=== PATIENT | female | born 1940 | race Caucasian/White ===

== ENCOUNTER 2016-10-12 13:29 | Observation (INO) | payer MEDICARE, OTHER ==
--- NOTE | ~2016-10-12 | HEMODYNAMI ---
PATIENT:MARIOLA PIERCE MEDICAL RECORD: [id number] : 40 LOCATION:[facility] D.2118 ADMISSION DATE: 10/12/16 Generatedon:10/13/201612:00 Patient name: MARIOLA PIERCE Patient #: [id number] SSN: : 1940 Date of study: 10/13/2016 Page: Of Hemodynamic Procedure Report Patient Data Patient Demographics Procedure consent was obtained First Name: MARIOLA Gender: Female Last Name: STAN : 1940 Patient #: [id number] Age: 75 year(s) Race: Unknown Additional ID: [id number] Contact details Address: [place] [address] State: [place] City: [place] Zip code: [address] Admission Admission Data Admission Date: 10/12/2016 Admission Time: 18:07 Room #: D.2118 Procedure Procedure Types Cath Procedure Diagnostic Procedure LHC LHC w/Coronaries PCI Procedure Coronary Stent Initial x2 Miscellaneous Procedures Moderate Sedation up to 15 minutes Procedure Description Procedure Date Procedure Date: 10/13/2016 Procedure Start Time: 11:38 Procedure End Time: 11:59 Procedure Staff Name Function Jose Conklin MD Performing Physician Rina Kruse RN Nurse Cliff Biggs RT Monitor Manish Farrell RT Scrub Procedure Data Cath Procedure Fluoroscopy Diagnostic fluoroscopy Total fluoroscopy Time: 5.1 time: 5.1 min min Diagnostic fluoroscopy Total fluoroscopy dose: 852 dose: 852 mGy mGy Contrast Material Contrast Material Type Amount (ml) Isovue 300 109 Entry Location Entry Primary Successful Side Size Upsize Upsize Entry Closure Nina ccessful Closure Location (Fr) 1 (Fr) 2 (Fr) Remarks Device Remarks Radial Right 6 Fr Mechanical artery Short Compression Estimated blood loss: 10 ml Diagnostic catheters Device Type Used For End Catheter Placement Terumo 5Fr Sparta 110cm Procedure catheter Procedure Complications No complications Procedure Medications Medication Administration Route Dosage Oxygen NC 2 l/min Heparin Flush Bag added to field 2 bags (1000units/500ml NS) Lidocaine 2% added to field 20 Radial Cocktail added to field 1 syringe (Verapomil 2mg/Nitro 400mcg/Heparin 1500units) Versed I.V. 1 mg Fentanyl I.V. 50 mcg Radial Cocktail I.A. 1 syringe (Verapomil 2mg/Nitro 400mcg/Heparin 1500units) Versed I.V. 1 mg Fentanyl I.V. 50 mcg Heparin Bolus I.V. 4000 units Fentanyl I.V. 50 mcg Hemodynamics Rest Heart Rate: 77 (bpm) Pressure Samples Time Site Value (mmHg) Purpose Heart Use Rate(bpm) 11:40 LV 123/11,13 Snapshot 71 11:40 AO 109/58(82) Pullback 75 11:40 LV 129/13,17 Pullback 75 11:41 AO 112/60(84) Snapshot 72 Gradients Valve Time Site 1 Site 2 Mean SEP/DFP Peak To Heart Use (mmHg) (sec/min) Peak Rate (mmHg) (bpm) Aortic 11:40 LV AO 10 18 20 75 129/13,17 109/58(82) Calculations Valve P-P Mean Valve Index Valve Source Name Gradient Area Flow (cm2) Aortic 20 10 20 10 Snapshots Pre Cath Intra NCS Post Cath Vital Signs Time Heart Resp SPO2 NIBP (mmHg) Rhythm Pain Sedation Rate (ipm) (%) Status Level (bpm) 11:12:18 78 17 99 162/72(112) NSR 0 (11) 10(A) , No pain 11:16:36 71 17 100 154/74(120) NSR 0 (11) 10(A) , No pain 11:20:56 71 23 99 155/71(106) NSR 0 (11) 10(A) , No pain 11:25:18 69 24 96 154/69(114) NSR 0 (11) 10(A) , No pain 11:29:38 69 21 98 155/74(104) NSR 0 (11) 10(A) , No pain 11:34:03 64 16 95 143/69(105) NSR 0 (11) 10(A) , No pain 11:38:25 61 17 97 132/69(96) NSR 0 (11) 10(A) , No pain 11:42:43 74 16 96 141/60(87) NSR 0 (11) 9(A) , No pain 11:47:01 74 16 92 119/57(89) NSR 0 (11) 9(A) , No pain 11:51:13 76 18 95 132/66(90) NSR 0 (11) 9(A) , No pain 11:54:03 73 19 96 120/61(86) NSR 0 (11) 9(A) , No pain 11:58:17 96 119/63(89) NSR 0 (11) 9(A) , No pain Medications Time Medication Route Dose Verified Delivered Reason Note s Effectiveness by by 11:13:32 Oxygen NC 2 l/min Jose Rina Per physician Katerin Kruse RN 11:13:40 Heparin Flush added 2 bags Jose Garcia used for Bag to Katerin Conklin MD procedure (1000units/500ml field NS) 11:13:47 Lidocaine 2% added 20ml Joserene Garcia used for to vial Katerin Conklin MD procedure field 11:13:53 Radial Cocktail added 1 Joserene Garcia used for (Verapomil to syringe Katerin Conklin MD procedure 2mg/Nitro field 400mcg/Heparin 1500units) 11:37:00 Versed I.V. 1 mg Jose Rina for sedation Katerin Kruse RN 11:37:15 Fentanyl I.V. 50 mcg Jose Rina for sedation Katerin Kruse RN 11:39:00 Versed I.V. 1 mg Jose Rina for sedation Katerin Kruse RN 11:39:15 Fentanyl I.V. 50 mcg Jose Rina for sedation Katerin Kruse RN 11:39:31 Radial Cocktail I.A. 1 Joserene Garcia for (Verapomil syringe Katerin Conklin MD vasodilation 2mg/Nitro 400mcg/Heparin 1500units) 11:41:06 Fentanyl I.V. 50 mcg Jose Rina for sedation Katerin Kruse RN 11:43:30 Heparin Bolus I.V. 4000 Jose Rina for dose units Katerin Kruse RN anticoagulation verified wt dr conklin Procedure Log Time Note 10:45:03 Manish Farrell RT(R) sent for patient. Start room use. 10:58:53 Time tracking: Regular hours 10:58:57 Plan of Care:Hemodynamics will remain stable., Cardiac rhythm will remain stable., Comfort level will be maintained., Respiratory function will remain adequate., Patient/ family verbilizes understanding of procedure., Procedure tolerated without complication., Recovers from procedure without complications.. 11:05:38 Patient received from PCU to CCL 2 Alert and oriented. Tansferred to table in Supine position. 11:05:39 Warm blankets applied, and shavon hugger turned on for patient comfort. 11:05:39 Correct patient and procedure confirmed by team. 11:05:41 Signed procedure consent form obtained from patient. 11:05:41 ECG and BP/O2 sat monitors applied to patient. 11:11:05 Vital chart was started 11:12:50 Baseline sample Acquired. 11:12:53 Rhythm: sinus rhythm 11:12:55 Full Disclosure recording started 11:13:32 Oxygen 2 l/min NC was administered by Rina Kruse RN; Per physician; 11:13:40 Heparin Flush Bag (1000units/500ml NS) 2 bags added to field was administered by Jose Conklin MD; used for procedure; 11:13:47 Lidocaine 2% 20ml vial added to field was administered by Jose Conklin MD; used for procedure; 11:13:53 Radial Cocktail (Verapomil 2mg/Nitro 400mcg/Heparin 1500units) 1 syringe added to field was administered by Joes Conklin MD; used for procedure; 11:18:31 H&P Date Dictated: 10/13/2016 Within 30 days and on chart.. 11:18:32 Pre-procedure instructions explained to patient. 11:18:32 Pre-op teaching completed and patient verbalized understanding. 11:18:33 Family in waiting room. 11:18:34 Patient NPO since Midnight. 11:18:36 Is the patient allergic to Iodine/contrast media? No. 11:18:37 Is patient on blood thinner?Yes 11:18:42 ACC The patient was administered the following blood thiners within the last 24 hours: ACCPlavix 11:18:44 Patient diabetic? No. 11:18:46 Patient not . Patient is over age 55. 11:18:50 Previous problem with sedation/anesthesia? No ? 11:18:55 Snore? Yes 11:18:56 Sleep apnea? No 11:18:57 Deviated septum? No 11:18:58 Opens mouth fully? Yes 11:18:59 Sticks out tongue? Yes 11:19:01 Airway obstruction? No ? 11:19:02 Dentures? No ? 11:19:05 Pre procedure: right dorsailis pedis pulse 1+ Palpable, but thready & weak; easily obliterated 11:19:08 Modified Jony's test Ulnar < 7 seconds 11:19:09 Patient pain scale 0/10 ?. 11:19:14 IV patent on arrival in left forearm with 0.9% NaCl at [facility]. 11:19:16 Lab results completed and on chart. 11:19:19 Right Radial & Right Groin area was prepped with chlora-prep and draped in sterile fashion 11:19:22 Alarms reviewed by R. N. 11:19:23 Sharps counted by scrub and verified by R.N. 11:19:28 Use device set Radial Dx 11:19:30 Tegaderm 4 x 4 opened to sterile field. 11:19:31 Acist Manifold opened to sterile field. 11:19:31 Acist Hand Control opened to sterile field. 11:19:32 Acist Syringe opened to sterile field. 11:19:33 Medline Cath Pack opened to sterile field. 11:19:33 Bag Decanter opened to sterile field. 11:19:33 Terumo 6Fr Slender Glidesheath opened to sterile field. 11:19:34 St Adis 260cm J .035 wire opened to sterile field. 11:19:34 MBrace Wrist Support opened to sterile field. 11:36:46 --------ALL STOP TIME OUT------ 11:36:47 Final Timeout: patient, procedure, and site verified with staff and physician. All members of the team are in agreement. 11:37:00 Versed 1 mg I.V. was administered by Rina Kruse RN; for sedation; 11:37:02 Right Radial & Right Groin site verified by team. 11:37:07 Physical assessment completed. ASA score P 2 - A patient with mild systemic disease as per Jose Conklin MD. 11:37:10 Sedation plan: IV Moderate Sedation Versed, Fentanyl 11:37:15 Fentanyl 50 mcg I.V. was administered by Rina Kruse RN; for sedation; 11:38:11 Procedure started. 11:38:16 Local anesthetic to right radial artery with Lidocaine 2% by Jose Conklin MD.INITIAL ACCESS ONLY 11:38:59 A 6 Fr Short sheath was inserted into the Right Radial artery 11:39:00 Versed 1 mg I.V. was administered by Rina Kruse RN; for sedation; 11:39:15 Fentanyl 50 mcg I.V. was administered by Rina Kruse RN; for sedation; 11:39:31 Radial Cocktail (Verapomil 2mg/Nitro 400mcg/Heparin 1500units) 1 syringe I.A. was administered by Jose Conklin MD; for vasodilation; 11:39:36 A Cylance 5Fr Sparta 110cm catheter was advanced over the wire and used for Procedure. 11:40:31 LV angiography performed. 11:40:32 LV gram done using JAMES 11:40:40 EF : 60 % 11:40:46 Injector settings: Ml/sec: 7, Volume: 15, 11:41:00 LCA angiography performed. 11:41:06 Fentanyl 50 mcg I.V. was administered by Rina Kruse RN; for sedation; 11:41:16 Valentine Whisper J 300cm 0.014 guide wire opened to sterile field. 11:41:16 Tosk BasixCompak Inflation Kit opened to sterile field. 11:42:12 RCA angiography performed. 11:42:42 Catheter exchanged over wire. 11:42:52 Medtronic Launcher 6Fr AR 1.0 guide catheter opened to sterile field. 11:43:05 6 Fr AR 1 guide catheter was inserted over the wire 11:43:30 Heparin Bolus 4000 units I.V. was administered by Rina Kruse RN; for anticoagulation; dose verified wtih dr conklin 11:44:50 Whisper wire advanced. 11:45:20 Wire advanced across lesion. 11:45:51 Inflation Number: 1 A Biofreedom 3.0 x 14 stent was prepped and advanced across the Mid RCA. The stent was deployed at 13 JOSE for 0:10 (min:sec). 11:46:55 Stent catheter was removed intact over wire. 11:46:56 Wire removed. 11:46:56 Guide catheter removed. 11:47:10 Cordis 6FR XBLAD 3.5 guide catheter opened to sterile field. 11:47:23 6 Fr XBLAD 3.5 guide catheter was inserted over the wire 11:48:29 Whisper wire advanced. 11:49:35 Wire advanced across lesion. 11:50:16 Inflation Number: 1 A Biofreedom 3.5 x 11 stent was prepped and advanced across the Mid LAD. The stent was deployed at 13 JOSE for 0:10 (min:sec). 11:51:07 Stent catheter was removed intact over wire. 11:51:08 Wire removed. 11:51:08 Guide catheter removed. 11:51:11 Procedure ended.(Physican Out) 11:51:20 Sheath removed intact; hemostasis achieved with Mechanical Compression to the Right Radial artery. 11:51:29 Terumo TR Band Standard opened to sterile field. 11:52:33 Fluoroscopy time 05.10 minutes. 11:52:36 Fluoroscopy dose: 852 mGy 11:52:36 Flurop Dose total: 852 11:52:47 Contrast amount:Isovue 300 109ml. 11:52:48 Sharps counted by scrub and verified by R.N. 11:52:51 TR band inflated with 12cc of air. 11:52:52 Insertion/operative site no bleeding no hematoma. 11:52:56 Post Procedure Pulses reassessed and unchanged 11:52:59 Post-procedure physical assessment completed. ASA score P 2 - A patient with mild systemic disease as per Jose Conklin MD. 11:53:02 Post procedure rhythm: unchanged. 11:53:04 Estimated blood loss: 10 ml 11:53:06 Post procedure instruction explained to patient.Patient verbalizes understanding. 11:53:06 Patient needs reinforcement of post procedure teaching. 11:53:21 Procedure type changed to Cath procedure, Diagnostic procedure, LHC, LHC w/Coronaries, PCI procedure, Coronary Stent Initial x2, Miscellaneous Procedures, Moderate Sedation up to 15 minutes 11:53:28 Procedure Complication : No complications 11:59:41 Procedure and supply charges have been captured, reviewed, submitted and are correct. 11:59:42 Vital chart was stopped 11:59:42 See physician's report for complete and final results. 11:59:45 Report given to PCU. 11:59:46 Patient transfered to PCU with Bed. 11:59:48 Procedure ended. 11:59:48 Full Disclosure recording stopped 11:59:56 End room use (Document Last) Intervention Summary Intervention Notes Time ActionType Lesion and Equipment Action# Pressure Duration Attributes Used 11:45:51 Place stent Mid RCA Biofreedom 1 13 00:10 3.0 x 14 stent 11:50:16 Place stent Mid LAD Biofreedom 1 13 00:10 3.5 x 11 stent Device Usage Item Name Manufacture Quantity Catalog Hospital Part Current Minimal Lot# / Number Charge Number Stock Stock Serial# Code Tegaderm 4 3M 1 1626W [id number] 744730 560619 5 x 4 Acist Acist 1 55011 441947 738662 447664 5 Manifold Medical Systems MadeiraMadeira Acist Hand Acist 1 22910 785735 570970 486824 5 Control CYA Technologies Systems MadeiraMadeira Acist Acist 1 59748 161635 216827 159286 20 Syringe Medical Systems Inc Medline Cardinal 1 [id number] 493012 22661 763182 5 Cath Pack Health Bag Microtek 1 2001S 204678 20159 903881 5 Crowdzu. Terumo 6Fr Terumo 1 [id number] 239466 161579 280782 [address] Adis 1 442414 185665 235743 013656 30 260cm J .035 wire MBrace Advanced 1 140-0250-00 371659 01137 624155 5 Wrist Vascular Support Dynamics Terumo 5Fr Terumo 1 52-1676 624630 921331 805788 5 Sparta 110cm catheter Valentine Valentine 1 [id number] 709493 242758 226849 5 Whisper J Vascular 300cm 0.014 guide wire Merit Merit 1 [id number] 765213 797887 226448 15 BasixCompak Medical Inflation Kit Medtronic Medtronic 1 [id number] 378400 67055 568737 1 Launcher 6Fr AR 1.0 guide catheter Biofreedom Biosensors 1 [facility]2-2546 645581 112829 5 [id number] 3.0 x 14 Europe SA stent Cordis 6FR Cardinal 1 [id number] 455502 036472 939178 10 XBLAD 3.5 Health guide catheter Biofreedom Biosensors 1 [facility]2-5726 304562 784125 5 [id number] 3.5 x 11 Europe SA stent Terumo TR Terumo 1 [id number] 861934 353682 240190 40 Band Standard Signature Audit Forbes Stage Time Signature Unsigned Intra-Procedure 10/13/2016 Cliff Biggs 12:00:21 PM RT(R) Signatures Monitor : Cliff Biggs RT Signature : Date : Time : [place] [id number] [place] [id number]
--- NOTE | ~2016-10-12 | DS ---
PATIENT:MARIOLA PIERCE :40 MEDICAL RECORD: [id number] DISCHARGE SUMMARY ADMISSION DATE: 10/12/16 DISCHARGE DATE: 10/13/16 DIAGNOSES: 1. Non-Q-wave myocardial infarction. 2. Coronary artery disease. 3. Percutaneous transluminal coronary angioplasty stent right coronary artery and left anterior descending this admission. HOSPITAL COURSE: Mrs. Pierce presents with unstable anginal symptomatology, has a mildly elevated troponin, underwent cardiac catheterization revealing severe disease of the LAD and RCA, underwent successful PTCA stent of above territories, had an uneventful postop course. She was discharged home with the addition of aspirin and Plavix to her medical regimen as she was already on a statin and a beta rivka. Will follow up with [facility] in 1 month. TRANSINT:[id number] Voice Confirmation ID: [id number] DOCUMENT ID: [id number] NJ PAULA MD CC: [id number] DICTATION DATE: 10/13/16 1158 BODY PAINTER: 10/14/16 0605 DIS IN 10/13/16 [place] [id number] [place] [id number]
--- NOTE | ~2016-10-12 | OP ---
PATIENT NAME: MARIOLA PIERCE MEDICAL RECORD: [id number] :40 LOCATION:D.M2 D.2118 ADMISSION DATE:10/12/16 SURGEON: NJ PAULA MD DATE OF OPERATION: 10/13/2016 PROCEDURES: 1. PTCA stent RCA. 2. PTCA stent LAD. 3. Left heart catheterization. 4. Selective coronary angiography. 5. Left ventriculogram. INDICATION: Angina, non-Q-wave myocardial infarction. PROCEDURE: After informed consent was obtained and after detailed explanation of risks, benefits as well as alternative therapies, the patient elected to proceed with angiogram and angioplasty. The right femoral area was prepped and draped in normal sterile fashion. The right radial area was prepped and draped in normal sterile fashion. Right radial artery was cannulated via modified Seldinger technique with placement of 6-Nepali sheath. All catheters exchanged through this sheath. FINDINGS: The left ventriculogram was performed in the standard 30-degree JAMES view reveals good cardiac wall motion throughout all segments. Overall ejection fraction 55% to 60%. SELECTIVE CORONARY ANGIOGRAPHY: 1. Left main is with no significant angiographic disease. 2. Left anterior descending has a 75% stenosis proximally. 3. Left circumflex has xjdg-[id number]-rhraajqh irregularities, but no flow-limiting stenosis. 4. Right coronary has a hazy 80% stenosis proximally. PTCA STENT OF THE RCA: The stent used was a 3.0 x 14 mm BioFreedom. Result was 0% residual stenosis. No angiographic evidence of dissection or thrombus with faith of ESTEFANI-3 flow. PTCA STENT OF THE LAD: The stent used is a 3.5 x 11 mm BioFreedom. Result was 0% residual stenosis. No evidence of dissection or thrombus. OVERALL IMPRESSION: Successful percutaneous transluminal coronary angioplasty stent of the RCA and LAD, both going from 75% to 80% initial stenosis to 0% residual. TRANSINT:[id number] Voice Confirmation ID: [id number] DOCUMENT ID: [id number] NJ PAULA MD CC: [id number] DICTATION DATE: 10/13/16 1200 CLIENT RETENTION SPECIALIST: 10/13/16 1803 DIS IN 10/13/16 [place] [id number] [place] [address]
--- NOTE | ~2016-10-12 | HP ---
PATIENT: MARIOLA PIERCE MEDICAL RECORD: [id number] ACCOUNT: [id number] LOCATION:[address] : 40 ADMISSION DATE: 10/12/16 HISTORY AND PHYSICAL EXAMINATION HISTORY OF PRESENT ILLNESS: A 75-year-old lady with history of hypertension, hyperlipidemia, recently ____ with progressive angina, scheduled for nuclear stress testing; however, had rest pain yesterday, mildly elevated cardiac enzymes consistent with acute coronary syndromes, non-ST elevation myocardial infarction, admitted for further evaluation. PAST MEDICAL HISTORY: Includes: 1. History of hypertension. 2. Hyperlipidemia. MEDICATIONS: Include: 1. Sinequan 25 mg q.h.s. 2. Pravastatin 40 every day. 3. Metoprolol 50 b.i.d. ALLERGIES: HYDROCODONE. 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 She is able to take care of all ADLs, nonsmoker, nondrinker. REVIEW OF SYSTEMS: The patient reports easy bruising but reports no swollen glands. The patient reports no fever, no night sweats, no significant weight gain, no significant weight loss. No significant exercise tolerance. The patient reports no dry eyes, no irritation, no vision change. Patient reports no difficulty hearing and no ear pain. Patient reports no frequent nose bleeds or nose and sinus problems. Patient reports on arm pain on exertion. No shortness of breath while lying down. No history of heart murmur. Patient reports no cough, no wheezing or coughing up blood. Patient reports no abdominal pain, no vomiting. Normal appetite. No diarrhea and not vomiting blood. No nausea and no constipation. Patient reports no incontinence. No difficulty urinating. No hematuria. No increased frequency. Patient reports no muscle aches. No weakness, no arthralgias, no back pain. No swelling of the extremities. Patient reports no abnormal mole, no jaundice, no rashes. Reports no loss of consciousness. No weakness and no numbness. No seizures, dizziness, or headaches. The patient reports no depression, no sleep disturbance, feeling safe in a relationship and no alcohol abuse. Patient reports on fatigue. Reports no runny nose or sinus pressure. No itching, no hives, and no frequent sneezing. PHYSICAL EXAMINATION: GENERAL: Pleasant female in no acute distress. VITAL SIGNS: Blood pressure 131/54, pulse 54 and regular. HEENT: Normocephalic, atraumatic. Neck: No bruit or JVD. HEART: Regular. LUNGS: Ca are clear. ABDOMEN: Soft, nontender. EXTREMITIES: Pulses 2+. There is no edema. NEUROLOGIC: Grossly intact. HISTORY AND PHYSICAL [id number] MARIOLA PIERCE DIAGNOSTIC DATA: ECG with ST-T changes anteriorly. IMPRESSION: Acute coronary syndrome. PLAN: For diagnostic angiography, intervention based on the above. TRANSINT:[id number] Voice Confirmation ID: [id number] DOCUMENT ID: [id number] RUBENS HENSON MD CC: [id number] DICTATION DATE: 10/13/16820 PAINT TESTER: 10/13/16903 ADM IN [facility] [address] [id number]
[2016-10-12 15:31] LABS: BASOPHILS 0.3 % (0.0-2.0); EOSINOPHILS 1.7 % (0-7); HEMATOCRIT 38.1 % (36.0-48.0); HEMOGLOBIN 12.8 g/dL (12-16); IMMATURE GRANULOCYTES 0.1 % (0-5); LYMPHOCYTES 33.1 % (15-50); MCH 31.1 pg (26.0-34.0); MCHC 33.6 g/dL (31.0-37.0); MCV 92.7 fL (80.0-100.0); MEAN PLATELET VOLUME 10.2 fL (7.4-10.4); MONOCYTES 8.6 % (2-11); NEUTROPHILS 56.2 % (40-80); PLATELET COUNT 301 10x3/uL (130-400); RBC 4.11 10x6/uL (4.00-5.40); RDW 13.3 % (11.5-14.5); WBC 7.2 10x3/uL (4.8-10.8)
[2016-10-12 15:44] LABS: ALBUMIN 3.2 g/dL (3.4-5.0); BILIRUBIN - TOTAL 0.35 mg/dL (0.2-1.3); CALCIUM 8.7 mg/dL (8.5-10.1); CARBON DIOXIDE 25.6 mmol/L (21.0-32.0); CREATININE - SERUM 1.5 mg/dL (0.6-1.3); POTASSIUM - SERUM 3.6 mmol/L (3.5-5.1); PROTEIN - SERUM 6.8 g/dL (6.4-8.2)
[2016-10-12 16:11] LABS: TROPONIN-I 0.109 ng/mL (0.000-0.060)
--- NOTE | 2016-10-12 18:35 | NUR ---
TRANSFER FROM ER BY W/C. SANTYINTED TO ROOM. CALL LIGHT IN REACH. WILL CONT. PLAN OF CARE.
[2016-10-12] MEDS ORDERED: LOPRESSOR25 MG PO (19:47)
[2016-10-12] MEDS ORDERED: SINEQUAN25 MG PO (19:48)
[2016-10-12] MEDS ORDERED: PRAVACHOL40 MG PO (19:48)
[2016-10-12] MEDS ORDERED: FOLBEE PLUS TAB1 TAB PO (19:50)
[2016-10-12] MEDS ORDERED: AZELASTINE137 MCG/0. NASAL (19:51)
[2016-10-12 20:53] VITALS: BP 152/64
--- NOTE | 2016-10-13 01:02 | NUR ---
LYING IN BED, NO NEEDS VOICED AT THIS TIME. WILL CONTINUE TO MONITOR.
[2016-10-13 02:00] VITALS: BP 152/65
[2016-10-13 04:00] VITALS: BP 123/59
--- NOTE | 2016-10-13 06:32 | NUR ---
NO CHANGES FROM PREVIOUS ASSESSMENT, CALL LIGHT IN REACH. REMAINS NPO UNTIL SEEN BY CARDIAC.
[2016-10-13 07:51] VITALS: BP 131/54
[2016-10-13 09:33] LABS: CKMB 2.2 U/L (0.0-3.6); CREATINE KINASE 165 UL (21-215)
--- NOTE | 2016-10-13 10:59 | NUR ---
PRE-OPS GIVEN. TO ASSURANCE ASSOCIATE BY BED.
[2016-10-13 11:58] VITALS: Wt 77.6 kg
[2016-10-13 12:00] VITALS: BP 136/61
--- NOTE | 2016-10-13 12:21 | NUR ---
BACK FROM PULPER TENDER. VS WNL. RIGHT WRIST STABLE WITH TR BAND INTACT. WILL MONITOR.
[2016-10-13] MEDS ORDERED: ASPIRIN81 MG PO (13:38)
[2016-10-13] MEDS ORDERED: PLAVIX75 MG PO (13:39)
--- NOTE | 2016-10-13 15:57 | NUR ---
LAB DRAWN. TR BAND DCD WITHOUT BLEEDING OR HEMATOMA NOTED.
--- NOTE | 2016-10-13 16:25 | NUR ---
IV AND TELEMETRY DCD. DC PLANS GIVEN. UNDERSTANDING VOICED. ESCORTED TO CAR BY W/C.
== END 2016-10-13 16:25 | disposition home or self-care (01) ==
LOC: D.ER 13:29 → D.M2 18:07 → OBSVTIME 18:07 → D.M2 10-13 16:25
PROVIDERS: Emergency Medicine; Internal Medicine Interventional Cardiology; ADMIT Internal Medicine Interventional Cardiology
DX: I21.4 Non-ST elevation (NSTEMI) myocardial infarction (principal); I25.119 Atherosclerotic heart disease of native coronary artery with unspecified angina pectoris; I10 Essential (primary) hypertension; E78.5 Hyperlipidemia, unspecified; Z00.6 Encounter for examination for normal comparison and control in clinical research program
CPT/HCPCS: 93458; C9600; C9601

== ENCOUNTER 2016-12-09 21:15 | Emergency (ER) | payer MEDICARE, OTHER ==
[~2016-12-09 21:15] MED LIST: ASPIRIN81 MG PO; AZELASTINE137 MCG/0. NASAL; FOLBEE PLUS TAB1 TAB PO; LOPRESSOR25 MG PO; PLAVIX75 MG PO; PRAVACHOL40 MG PO; SINEQUAN25 MG PO
[2016-12-09 21:59] LABS: BASOPHILS 0.2 % (0-2); EOSINOPHILS 1.2 % (0-7); HEMATOCRIT 39.5 % (36.0-48.0); HEMOGLOBIN 13.4 g/dL (12-16); IMMATURE GRANULOCYTES 0.1 % (0-5); LYMPHOCYTES 32.2 % (15-50); MCH 30.8 pg (26.0-34.0); MCHC 33.9 g/dL (31.0-37.0); MCV 90.8 fL (80.0-100.0); MEAN PLATELET VOLUME 11.1 fL (7.4-10.4); MONOCYTES 8.4 % (2-11); NEUTROPHILS 57.9 % (40-80); PLATELET COUNT 299 10x3/uL (130-400); RBC 4.35 10x6/uL (4.00-5.40); RDW 13.1 % (11.5-14.5); WBC 8.8 10x3/uL (4.8-10.8)
[2016-12-09 22:14] LABS: ALBUMIN 3.7 g/dL (3.4-5.0); ANION GAP 16.3 mmol/L (8-16); BILIRUBIN - TOTAL 0.66 mg/dL (0.2-1.3); CALCIUM 8.9 mg/dL (8.5-10.1); CARBON DIOXIDE 22.9 mmol/L (21.0-32.0); CREATININE - SERUM 1.5 mg/dL (0.6-1.3); POTASSIUM - SERUM 3.2 mmol/L (3.5-5.1); PROTEIN - SERUM 7.2 g/dL (6.4-8.2)
== END 2016-12-10 01:00 | disposition home or self-care (01) ==
LOC: D.ER 21:15
PROVIDERS: Emergency Medicine
DX: I10 Essential (primary) hypertension (principal); R51 Headache; K21.9 Gastro-esophageal reflux disease without esophagitis

== ENCOUNTER 2017-11-11 19:54 | Emergency (ER) | payer MEDICARE, OTHER ==
[2017-09-29 16:43] VITALS: BMI 31.2
[~2017-11-11 19:54] MED LIST changes: +FLAGYL500 MG PO; +LEVAQUIN500 MG PO; +ZESTORETIC 10/11 TAB PO
[2017-11-11 21:11] LABS: BASOPHILS 0.1 % (0-2); EOSINOPHILS 0 % (0-7); HEMATOCRIT 37.5 % (36.0-48.0); HEMOGLOBIN 13.1 g/dL (12-16); IMMATURE GRANULOCYTES 0.1 % (0-5); MCH 32.1 pg (26.0-34.0); MCHC 34.9 g/dL (31.0-37.0); MCV 91.9 fL (80.0-100.0); MEAN PLATELET VOLUME 10.5 fL (7.4-10.4); NEUTROPHILS 80.8 % (40-80); RBC 4.08 10x6/uL (4.00-5.40); RDW 12.9 % (11.5-14.5); WBC 10.2 10x3/uL (4.8-10.8)
[2017-11-11 21:18] LABS: PLATELET COUNT 277 10x3/uL (130-400)
[2017-11-11 21:44] LABS: ALBUMIN 3.2 g/dL (3.4-5.0); ANION GAP 15.4 mmol/L (8-16); BILIRUBIN - TOTAL 0.53 mg/dL (0.2-1.3); CARBON DIOXIDE 24.1 mmol/L (21.0-32.0); CREATININE - SERUM 1.4 mg/dL (0.6-1.3); MAGNESIUM - SERUM 1.7 mg/dL (1.8-2.4); POTASSIUM - SERUM 3.5 mmol/L (3.5-5.1); PROTEIN - SERUM 6.6 g/dL (6.4-8.2)
== END 2017-11-11 23:30 | disposition home or self-care (01) ==
LOC: D.ER 19:54
PROVIDERS: Emergency Medicine
DX: R42 Dizziness and giddiness (principal); R00.1 Bradycardia, unspecified; E83.42 Hypomagnesemia; E86.0 Dehydration; I10 Essential (primary) hypertension; K21.9 Gastro-esophageal reflux disease without esophagitis

== ENCOUNTER 2018-03-30 15:15 | Emergency (ER) | payer MEDICARE ==
[~2018-03-30] VITALS: Ht 154.9 cm; Wt 81.8 kg
[2018-03-30 15:21] VITALS: Ht 154.9 cm; Wt 81.8 kg
[2018-03-30] MEDS ORDERED: AZOR 10-20 MG T1 TAB PO (15:25)
[2018-03-30] MEDS ORDERED: OMEPRAZOLE20 M1 PO (15:25)
[2018-03-30 15:52] LABS: BASOPHILS 0.3 % (0-2); EOSINOPHILS 0.6 % (0-7); HEMATOCRIT 37.8 % (36.0-48.0); HEMOGLOBIN 13.3 g/dL (12-16); IMMATURE GRANULOCYTES 0.1 % (0-5); LYMPHOCYTES 24.7 % (15-50); MCHC 35.2 g/dL (31.0-37.0); MCV 91.1 fL (80.0-100.0); MEAN PLATELET VOLUME 9.9 fL (7.4-10.4); MONOCYTES 8.5 % (2-11); NEUTROPHILS 65.8 % (40-80); PLATELET COUNT 338 10x3/uL (130-400); RBC 4.15 10x6/uL (4.00-5.40); RDW 12.8 % (11.5-14.5); WBC 7.8 10x3/uL (4.8-10.8)
[2018-03-30 16:01] LABS: ALBUMIN 3.7 g/dL (3.4-5.0); ALKALINE PHOSPHATASE 103 U/L (46-116); ALT (SGPT) 31 U/L (10-68); BILIRUBIN - TOTAL 0.44 mg/dL (0.2-1.3); CALC OSMOLALITY 284 mosm/kg (275-300); CALCIUM 9.7 mg/dL (8.5-10.1); CARBON DIOXIDE 25.7 mmol/L (21.0-32.0); CHLORIDE - SERUM 102 mmol/L (98-107); CREATININE - SERUM 1.8 mg/dL (0.6-1.3); GLUCOSE 109 mg/dL (74-106); POTASSIUM - SERUM 3.8 mmol/L (3.5-5.1); PROTEIN - SERUM 7.8 g/dL (6.4-8.2); SODIUM 140 mmol/L (136-145); UREA NITROGEN 26 mg/dL (7-18); eGFR NON AFRICAN AMERICAN 29 mL/min (90-120)
[2018-03-30 16:16] LABS: CKMB 1.9 U/L (0.0-3.6); CREATINE KINASE 187 UL (21-215); TROPONIN-I 0.059 ng/mL (0.000-0.060)
[2018-03-30 17:07] VITALS: BP 133/60
== END 2018-03-30 17:12 | disposition home or self-care (01) ==
LOC: D.ER 15:15
PROVIDERS: Emergency Medicine
DX: T43.695A Adverse effect of other psychostimulants, initial encounter (principal); Y92.019 Unspecified place in single-family (private) house as the place of occurrence of the external cause; R07.9 Chest pain, unspecified; R00.2 Palpitations; I10 Essential (primary) hypertension

== ENCOUNTER → 2018-05-28 08:34 | Outpatient (CLI) | payer MEDICARE, OTHER ==
[2018-03-30 15:21] VITALS: BMI 34.0
[~2018-05-28 08:34] MED LIST changes: +AZOR 10-20 MG T1 TAB PO; +OMEPRAZOLE20 M1 PO
== END | disposition home or self-care (01) ==
LOC: D.US 08:30
DX: I12.9 Hypertensive chronic kidney disease with stage 1 through stage 4 chronic kidney disease, or unspecified chronic kidney disease (principal); N18.3 Chronic kidney disease, stage 3 (moderate); D64.9 Anemia, unspecified; N25.81 Secondary hyperparathyroidism of renal origin; Z68.33 Body mass index [BMI] 33.0-33.9, adult